=== PATIENT | male | born 1980 | race Caucasian/White ===

== ENCOUNTER 2017-07-22 20:07 | Emergency (ER) | payer MEDICAID ==
[~2017-07-22] VITALS: Ht 167.6 cm; Wt 73.5 kg
[2017-07-22] MEDS ORDERED: PRED10TA PO (20:35)
[2017-07-22 21:07] VITALS: BP 145/89
== END 2017-07-22 21:09 | disposition home or self-care (01) ==
LOC: ER 20:08
DX: L23.7 Allergic contact dermatitis due to plants, except food (principal)
CPT/HCPCS: 99283